=== PATIENT | male | born 1985 | race Caucasian/White ===

== ENCOUNTER 2018-03-07 08:27 | Emergency (ER) | payer OTHER ==
[2018-03-07 08:53] VITALS: BP 122/69
--- NOTE | 2018-03-07 09:04 | UC ---
Eye Complaint HPI - HPI Summary HPI Summary: Patient presents to urgent care with progressive redness and drainage from his eyes right worse than left. Patient states she's had some green discharge. Patient denies any pain. Patient has any vision changes. No photophobia. Patient does not wear corrective lenses. Patient denies sick contacts. Patient states sizer crusty in the morning. Patient has applied warm soaks with little improvement. Patient denies any headaches. No ear pain, no sinus pain, no sore throat. no foreign body sense Patient's medications reviewed this visit - History of Current Complaint Chief Complaint: UCEye Stated Complaint: BILAT EYE COMPLAINT Time Seen by Provider: 03/07/18 08:43 Hx Obtained From: Patient Severity Initially: Mild Severity Currently: Moderate Pain Intensity: 5 Pain Scale Used: 0-10 Numeric Location of Injury: Conjunctiva Aggravating Factor(s): Nothing Alleviating Factor(s): Nothing - Allergies/Home Medications Allergies/Adverse Reactions: Allergies Allergy/AdvReac Type Severity Reaction Status Date / Time No Known Allergies Allergy Verified 03/07/18 08:44 PMH/Surg Hx/FS Hx/Imm Hx Previously Healthy: Yes - Surgical History Surgical History: None - Family History Known Family History: Positive: Other - Hx of CA in mother Negative: Hypertension - Social History Occupation: Employed Full-time Lives: With Family Alcohol Use: Occasionally Substance Use Type: None Smoking Status (MU): Never Smoked Tobacco - Immunization History Most Recent Influenza Vaccination: doesn't Review of Systems Constitutional: Negative Eyes: Drainage, Eye Redness All Other Systems Reviewed And Are Negative: Yes Physical Exam - Summary Physical Exam Summary: Vital Signs Reviewed: Yes A+Ox3, no distress Eyes: CARRILLO, EOM intact and full + injection right eye conjunctiva b/l R>L + green dry crust discharge left medial eye pt with small inflammed upper right lid, medial aspect - possible ? early stye. no photophobia reviewed visual acuity ENT: Hearing grossly normal TM x2 clear mmmoist no exduate. no erythema neck: supple Respiratory: Positive: No respiratory distress, No accessory muscle use Cardiovascular: skin color reflect adequate perfusion Musculoskeletal Exam: AYALA x 4 without difficulty Neurological: Positive: Alert, ambulatory without difficulty Psychological: Positive: Normal Response To Family Skin: Positive: no rash, no ecchymosis Triage Information Reviewed: Yes Vital Signs: Initial Vital Signs Temp 97.5 F 03/07/18 08:45 Pulse 70 03/07/18 08:45 Resp 16 03/07/18 08:45 BP 122/69 03/07/18 08:45 Pulse Ox 96 03/07/18 08:45 Eye Complaint Course/Dx - Course Course Of Treatment: Pt presents wtih eye injection and discharge x 2 days R.L. No corrective lenses. On exam, pt with injection right eye with mild upper medial lid erythema - Differential Dx/Diagnosis Provider Diagnoses: conjunctivitis Discharge - Sign-Out/Discharge Documenting (check all that apply): Post-Discharge Follow Up - Discharge Plan Condition: Stable Disposition: HOME Prescriptions: Polymyx/Trimethoprim OPTH* [Polytrim OPHTH*] 2 drop BOTH EYES Q6HR #1 btl Patient Education Materials: Conjunctivitis (ED) Referrals: No Primary Care Phys,NOPCP [Primary Care Provider] - Additional Instructions: - Use eye drops as prescribed until gone - apply warm, wet soaks to your eye 3 times a day. do not share cloth between eyes - Wash your hands thoroughly and frequently - try not to rub your eyes - wear sunglasses as needed for light sensitivity - if you develop vision changes, swelling of the lid, pain with movement of eye or any other concerns it is recommended you are re-evaluated - Billing Disposition and Condition Condition: STABLE Disposition: Home
== END 2018-03-07 09:32 | disposition home or self-care (01) ==
LOC: UCCORT 08:27
DX: H10.9 Unspecified conjunctivitis (principal)
CPT/HCPCS: 99212; G0463

== ENCOUNTER 2019-06-27 15:14 | Emergency (ER) | payer OTHER ==
[2019-06-27 15:37] VITALS: BP 145/82
--- NOTE | 2019-06-27 16:03 | UC ---
General HPI - HPI Summary HPI Summary: 34-year-old male presents with complaints of cold sore help break 2 days ago. Reports a painful lesion to his left lower lip. States she has had previous outbreaks although it has been several years. Reports operate start typically caused by high degrees of stress which he is currently experiencing. Denies fever, chills, or URI symptoms. - History of Current Complaint Chief Complaint: UCGeneralIllness Stated Complaint: MOUTH COMPLAINT Time Seen by Provider: 06/27/19 15:42 Hx Obtained From: Patient Pain Intensity: 0 - Allergy/Home Medications Allergies/Adverse Reactions: Allergies Allergy/AdvReac Type Severity Reaction Status Date / Time No Known Allergies Allergy Verified 03/07/18 08:44 PMH/Surg Hx/FS Hx/Imm Hx Previously Healthy: Yes - Denies significant PMH - Surgical History Surgical History: None - Family History Known Family History: Positive: Other - Hx of CA in mother - Social History Occupation: Employed Full-time Lives: With Family Alcohol Use: Occasionally Substance Use Type: None Smoking Status (MU): Never Smoked Tobacco - Immunization History Most Recent Influenza Vaccination: doesn't Review of Systems All Other Systems Reviewed And Are Negative: Yes Constitutional: Negative: Fever, Chills Skin: Positive: Other - See HPI Eyes: Negative: Drainage, Eye Redness ENT: Negative: Sore Throat, Ear Ache, Nasal Discharge, Sinus Congestion, Sinus Pain/Tenderness Respiratory: Negative: Cough Cardiovascular: Positive: Negative Gastrointestinal: Positive: Negative Genitourinary: Positive: Negative Musculoskeletal: Positive: Negative Neurological: Positive: Negative Is Patient Immunocompromised?: No Physical Exam - Summary Physical Exam Summary: GENERAL APPEARANCE: Well developed, well nourished, alert and cooperative, and appears to be in no acute distress. EYES: Conjunctiva clear. No drainage. EARS: External auditory canals and tympanic membranes clear, hearing grossly intact. NOSE: No nasal discharge. MOUTH/THROAT: Pharynx normal No tonsilar inflammation, swelling, exudate, or lesions. Uvula midline. Crusted ulcerative lesion to the left lower lip. NECK: Neck supple, non-tender without lymphadenopathy. CARDIAC: Normal S1 and S2. No S3, S4 or murmurs. Rhythm is regular. There is no peripheral edema, cyanosis or pallor. Extremities are warm and well perfused. Capillary refill is less than 2 seconds. Peripheral pulses intact. LUNGS: Clear to auscultation without rales, rhonchi, wheezing or diminished breath sounds. ABDOMEN: Positive bowel sounds. Soft, nondistended, nontender. No guarding or rebound. No masses or hepatosplenomegally. MUSKULOSKELETAL: ROM intact to all extremities. No joint erythema or tenderness. Normal muscular development. Normal gait. SKIN: Skin normal color, texture and turgor with no lesions or eruptions. Triage Information Reviewed: Yes Vital Signs: Initial Vital Signs Temp 97.7 F 06/27/19 15:33 Pulse 98 06/27/19 15:33 Resp 16 06/27/19 15:33 BP 145/82 06/27/19 15:33 Pulse Ox 98 06/27/19 15:33 Vital Signs Reviewed: Yes Course/Dx - Course Course Of Treatment: 34-year-old male presents with complaints of cold sore help break 2 days ago. Reports a painful lesion to his left lower lip. States she has had previous outbreaks although it has been several years. Reports operate start typically caused by high degrees of stress which he is currently experiencing. Denies fever, chills, or URI symptoms. Afebrile. Hypertensive otherwise vital signs stable. Patient's exam was overall unremarkable except for a crusted ulcerative lesion to the left lower lip consistent with an oral herpes simplex lesion. Will start patient on acyclovir 400 mg every 8 hours 7 days. I did discuss with the patient that this is not a curative treatment and that he may still have future outbreaks in the future. He is to return here or follow up with his primary care provider in 7 days if symptoms are not improving. Anticipatory guidance and warning symptoms reviewed with the patient. Verbalizes understanding and agrees with plan of care. - Diagnoses Provider Diagnosis: Oral herpes simplex infection Discharge ED - Sign-Out/Discharge Documenting (check all that apply): Patient Departure All imaging exams completed and their final reports reviewed: No Studies - Discharge Plan Condition: Stable Disposition: HOME Prescriptions: Acyclovir [Zovirax] 400 mg PO Q8HR #21 tab Patient Education Materials: Oral Herpes Simplex Virus Infections (ED) Referrals: No Primary Care Phys,NOPCP [Primary Care Provider] - Additional Instructions: Your symptoms are consistent with a oral herpes simplex infection (cold sore). We will start you on an antiviral medication to help treat the symptoms. Please be aware that this is not a cure for the infection but is only meant to help reduce the duration and severity of symptoms. Treatment also does not reduce the chance of recurrence of the infection. Start acyclovir 400 mg every 8 hours for 7 days. Avoid eating salty, ascitic, or spicy foods as this can aggravate symptoms. The virus that causes cold sore is highly contagious therefore to help prevent infection: * Avoid close contact with other individuals until the sore completely heals. This includes kissing, touching, and oral sex. * Do not share utensils, towels, or lip balm. * Avoid touching the sore and then touching other parts of your body as this can spread the infection. Return here or follow-up with your primary care provider in 5-7 days if symptoms are not improving. Seek immediate medical attention if you develop a fever greater than 100.5 F, developed sores in other locations especially in or around the eyes, you have any difficulty swallowing, difficulty breathing, abdominal pain, severe headache , or any worsening of symptoms. - Billing Disposition and Condition Condition: STABLE Disposition: Home - Attestation Statements Provider Attestation: Per institutional requirements, I have reviewed the chart, however, I was not consulted specifically or made aware of this patient by the midlevel provider. I did not personally evaluate, interact with , or disposition this patient.
== END 2019-06-27 16:29 | disposition home or self-care (01) ==
LOC: UCEAST 15:14
DX: B00.1 Herpesviral vesicular dermatitis (principal)
CPT/HCPCS: 99212; G0463